=== PATIENT | female | born 1970 | race Caucasian/White ===

== ENCOUNTER → 2019-02-04 | Outpatient (CLI) | payer OTHER ==
[~2019-02-04] MED LIST: EPINEPHrine HCL 1 MG/1 ML AMP ONE; IOHEXOL 300 MG/ML 100ML BOTTLE IJ ONE; diphenhdrAMINE HCL 50 MG/1 ML VL IV ONE; diphenhdrAMINE HCL 50 MG/1 ML VL ONE; methylPREDNISolone SOD SUCC 125 MG/2 ML VL ONE
[2019-02-04 10:17] LABS: BUN/Creatinine Ratio 19.4; Calcium 8.6 mg/dL (8.5-10.1); Potassium 4.7 mmol/L (3.5-5.1)
== END | disposition home or self-care (01) ==
LOC: CT 09:04
DX: R16.0 Hepatomegaly, not elsewhere classified (principal); B19.20 Unspecified viral hepatitis C without hepatic coma; R10.31 Right lower quadrant pain
CPT/HCPCS: 36415; 74178; 80048; J1200; Q9967; J0171